=== PATIENT | male | born 1970 | race Caucasian/White ===

== ENCOUNTER → 2017-10-20 | Outpatient (CLI) | payer MEDICARE ==
[2017-10-20 10:09] LABS: Basophils # (A) 0.1 k/uL (0-0.2); Basophils % (A) 1 %; Eosinophils # (A) 0.4 k/uL (0-0.7); Eosinophils % (A) 4 %; HCT 45.6 % (39.0-53.0); HGB 14.3 gm/dL (13.0-17.5); Lymphocytes # (A) 1.9 k/uL (1.0-4.8); Lymphocytes % (A) 23 %; MCH 28.4 pg (25.0-35.0); MCHC 31.3 g/dL (31.0-37.0); MCV 90.7 fL (80.0-100.0); Mean Platelet Volume 8.6; Monocytes # (A) 0.5 k/uL (0-1.0); Monocytes % (A) 6 %; Neutrophils # (A) 5.4 k/uL (1.3-7.7); Neutrophils % (A) 65 %; Platelet Count 265 k/uL (150-450); RBC 5.03 m/uL (4.30-5.90); RDW 13.9 % (11.5-15.5); WBC 8.3 k/uL (3.8-10.6)
[2017-10-20 10:26] LABS: ALT 22 U/L (21-72); AST 18 U/L (17-59); Albumin 4.2 g/dL (3.5-5.0); Alkaline Phosphatase 94 U/L (38-126); Anion Gap 14 mmol/L; Blood Urea Nitrogen 15 mg/dL (9-20); Carbon Dioxide 30 mmol/L (22-30); Chloride 100 mmol/L (98-107); Cholesterol 168 mg/dL (<200); Glucose 86 mg/dL (74-99); HDL Cholesterol 34 mg/dL (40-60); LDL Cholesterol,Calculated 109 mg/dL (0-99); Potassium 4.3 mmol/L (3.5-5.1); Sodium 144 mmol/L (137-145); Total Bilirubin 0.5 mg/dL (0.2-1.3); Total Protein 7.5 g/dL (6.3-8.2); Triglycerides 124 mg/dL (<150)
== END | disposition home or self-care (01) ==
LOC: LABWHC1 09:43
PROVIDERS: ATTEND Nurse Practitioner Primary Care
DX: E78.2 Mixed hyperlipidemia (principal); I10 Essential (primary) hypertension; D64.9 Anemia, unspecified
CPT/HCPCS: 36415; 80053; 80061; 84443; 85025

== ENCOUNTER → 2021-02-06 | Outpatient (CLI) | payer MEDICARE ==
--- NOTE | 2021-02-06 09:40 | ECHOF ---
Referral Reason:I42.2 Left ventrical hypertrophy MEASUREMENTS -------- HEIGHT: 162.6 cm WEIGHT: 85.3 kg BP: IVSd: 1.1 cm (0.6 - 1.1) LVIDd: 3.2 cm (3.9 - 5.3) LVPWd: 1.3 cm (0.6 - 1.1) EDV(Teich): 40 ml IVSs: 2.0 cm LVIDs: 1.6 cm LVPWs: 1.9 cm %IVS Thck: 73 % ESV(Teich): 7 ml EF(Teich): 83 % %FS: 50 % SV(Teich): 33 ml RVIDd: 2.4 cm (< 3.3) IVC: 15.62 mm LALs A4C: 4.8 cm LAAs A4C: 15.9 cm LAESV A-L A4C: 45 ml LAESV MOD A4C: 39 ml LALs A2C: 4.7 cm LAAs A2C: 15.5 cm LAESV A-L A2C: 43 ml LAESV MOD A2C: 39 ml LAESV(A-L): 44 ml LAESV Index (A-L): 23.04 ml/m Ao Diam: 3.9 cm (2.0 - 3.7) LA Diam: 2.9 cm (2.7 - 3.8) AV Cusp: 2.3 cm (1.5 - 2.6) EPSS: 0.9 cm MV E Beto: 0.53 m/s MV DecT: 231 ms MV Dec [place]: 2.3 m/s MV A Beto: 0.85 m/s MV E/A Ratio: 0.62 MV PHT: 67 ms MR Vmax: 0.96 m/s MR maxP.66 mmHg AV Vmax: 1.09 m/s AV maxP.77 mmHg AV Vmax: 1.21 m/s AV Vmean: 0.90 m/s AV maxP.90 mmHg AV meanP.51 mmHg AV Env.Ti: 268 ms AV VTI: 24.1 cm AR Vmax: 1.59 m/s AR maxP.10 mmHg AR PHT: 647 ms AR Dec Time: 2231 ms AR Dec [place]: 0.7 m/s TR Vmax: 1.40 m/s TR maxP.89 mmHg RAP: 5.00 mmHg RVSP: 12.89 mmHg MV EF SLOPE: 119.96 mm/s (70 - 150) MV EXCURSION: 19.78 mm (> 18.000) FINDINGS -------- This was a technically good study. The left ventricular size is normal. Left ventricular wall thickness is normal. Overall left vent ricular systolic function is normal with, an EF between 55 - 60 %. The diastolic filling pattern is normal for the age of the patient 8.69. The right ventricle is normal in size. The left atrial size is normal. The right atrial size is normal. Interatrial and interventricular septum intact. Trace amount of aortic regurgitation. Peak/mean gradient across the Aortic Valve is 5.90mmHg / 3.5 1mmHg. AOV opens Bicuspid. The mitral valve is normal. There is trace mitral regurgitation. The tricuspid valve appears structurally normal. Trace tricuspid regurgitation present. Right meghan tricular systolic pressure is normal at < 35 mmHg. There is no pulmonic regurgitation present. The aortic root is dilated measuring 3.9 cm. Normal inferior vena cava with normal inspiratory collapse consistent with estimated right atrial pre ssure of 5 mmHg. There is no pericardial effusion. CONCLUSIONS -------- 1. The left ventricular size is normal. 2. Left ventricular wall thickness is normal. 3. Overall left ventricular systolic function is normal with, an EF between 55 - 60 %. 4. The diastolic filling pattern is normal for the age of the patient 8.69 5. Trace amount of aortic regurgitation. 6. AOV opens Bicuspid. 7. There is trace mitral regurgitation. 8. Trace tricuspid regurgitation present. 9. The aortic root is dilated measuring 3.9 cm 10. There is no pericardial effusion. SLEEVE SETTER: Ela Rice RDCS
== END | disposition home or self-care (01) ==
LOC: RADECHMAIN 08:17
PROVIDERS: ATTEND Family Medicine
DX: I35.1 Nonrheumatic aortic (valve) insufficiency (principal); I34.0 Nonrheumatic mitral (valve) insufficiency; I07.1 Rheumatic tricuspid insufficiency; I42.2 Other hypertrophic cardiomyopathy
CPT/HCPCS: 93306